=== PATIENT | male | born 1995 | race African-American/Black ===

== ENCOUNTER 2018-02-08 04:38 | Emergency (ER) | payer OTHER ==
[~2018-02-08] VITALS: Ht 167.6 cm; Wt 72.7 kg
[2018-02-08 04:43] VITALS: BP 125/76; PULSE 100; TEMP 97.8
== END 2018-02-08 06:07 | disposition home or self-care (01) ==
LOC: COL.ER 04:38
DX: J36 Peritonsillar abscess (principal)